=== PATIENT | female | born 1965 | race American Indian/Alaskan Native ===

== ENCOUNTER 2018-12-26 00:13 | Inpatient (IN) | payer MEDICAID ==
[2018-12-26 00:52] LABS: Basophils % (Auto) 0.7 % (0.0-1.8); Hematocrit 32.5 % (30.3-42.9); Hemoglobin 10.3 gm/dl (10.1-14.3); Lymphocytes # (Auto) 1.9 K/mm3 (1.2-5.4); Lymphocytes % (Auto) 37.3 % (13.4-35.0); Mean Corpuscular HGB Conc 32 % (30-34); Mean Corpuscular Volume 79 fl (79-97); Monocytes # (Auto) 0.2 K/mm3 (0.0-0.8); Monocytes % (Auto) 4.9 % (0.0-7.3); Platelet Count 233 K/mm3 (140-440); Red Blood Count 4.11 M/mm3 (3.65-5.03)
--- NOTE | 2018-12-26 01:04 | XRay Report ---
PROCEDURE: XR CHEST 1V AP TECHNIQUE: Chest radiograph single view. HISTORY: sob COMPARISONS: None . FINDINGS: Heart: Heart is enlarged. Mediastinum/Vessels: Normal. Lungs/Pleural space: There is suboptimal inspiration. There is bilateral perihilar pulmonary edema. There are no effusions or pneumothoraces.. Bony thorax: No acute osseous abnormality. Life support devices: None. IMPRESSION: Heart is enlarged. There is suboptimal inspiration. There is bilateral perihilar pulmonary edema. There are no effusions or pneumothoraces... This document is electronically signed by Delvis Guan MD., December 26 2018 01:02:19 AM ET
[2018-12-26] MEDS ORDERED: LASIX IV ONE (01:07)
[2018-12-26 01:13] LABS: INR 1.05 (0.87-1.13)
[2018-12-26 01:36] LABS: Red Cell Distribution Width 22.6 % (13.2-15.2)
[2018-12-26 01:37] LABS: BUN/Creatinine Ratio 14; Blood Urea Nitrogen 18 mg/dL (7-17); Calcium 8.7 mg/dL (8.4-10.2); Hemolysis Index 2
--- NOTE | 2018-12-26 01:50 | Emergency Department Report ---
ED Shortness of Breath HPI - General Chief Complaint: Dyspnea/Respdistress Stated Complaint: BOO Time Seen by Provider: 12/26/18 00:20 Source: patient, family, EMS Mode of arrival: Stretcher Limitations: Physical Limitation - History of Present Illness Initial Comments: 53-year-old female with history of COPD and CHF presents to ED in acute respiratory distress. EMS was called by patient, when they arrived patient was on her BiPAP but tachypneic. Patient was given aspirin, sublingual nitroglycerin 2, Solu-Medrol. Patient was placed on CPAP and given albuterol nebs. The patient did not tolerate CPAP well due to her claustrophobia, so patient arrives to ED with the mask in front of her face. MD Complaint: shortness of breath -: During the night Severity: severe Consistency: constant Improves With: nothing Worsens With: nothing Known History Of: COPD, congestive heart failure Associated Symptoms: cough Treatments Prior to Arrival: NIPPV - Related Data Home Medications Medication Instructions Recorded Confirmed Last Taken Allopurinol [Zyloprim] 300 mg PO QDAY 12/26/18 12/26/18 12/25/18 Amlodipine Besylate [Norvasc] 5 mg PO DAILY 12/26/18 12/26/18 12/25/18 Carvedilol [Coreg] 25 mg PO BID 12/26/18 12/26/18 12/25/18 Furosemide [Lasix TAB] 40 mg PO BID 12/26/18 12/26/18 12/25/18 Glimepiride [Amaryl] 4 mg PO QAM 12/26/18 12/26/18 12/25/18 Indomethacin [Indocin] 25 mg PO BID 12/26/18 12/26/18 12/25/18 Losartan Potassium 100 mg PO DAILY 12/26/18 12/26/18 12/25/18 Metformin HCl [Glucophage ER] 750 mg PO QDAY 12/26/18 12/26/18 12/25/18 Potassium Chloride [Klor-Con 8] 10 meq PO QDAY 12/26/18 12/26/18 12/25/18 Ranitidine HCl [Zantac] 150 mg PO BID 12/26/18 12/26/18 12/25/18 Venlafaxine HCl [Venlafaxine HCl 75 mg PO DAILY 0612/26/18 12/25/18 ER] hydrALAZINE [Apresoline] 50 mg PO Q8HR 12/26/18 12/26/18 12/25/18 Allergies Allergy/AdvReac Type Severity Reaction Status Date / Time lisinopril Allergy Angioedema Verified 12/26/18 00:21 ED Review of Systems ROS: Stated complaint: BOO Other details as noted in HPI Comment: All other systems reviewed and negative Constitutional: denies: chills, fever Respiratory: cough, shortness of breath Cardiovascular: denies: chest pain Musculoskeletal: other (reports BLE edema) ED Past Medical Hx - Past Medical History Previous Medical History?: Yes Hx Hypertension: Yes Hx Congestive Heart Failure: Yes Hx Diabetes: Yes Hx of Cancer: Yes Hx Arthritis: Yes Additional medical history: Gout, - Surgical History Past Surgical History?: Yes Additional Surgical History: port placement - Social History Smoking Status: Never Smoker Substance Use Type: None - Medications Home Medications: Home Medications Medication Instructions Recorded Confirmed Last Taken Type Allopurinol [Zyloprim] 300 mg PO QDAY 12/26/18 12/26/18 12/25/18 History Amlodipine Besylate [Norvasc] 5 mg PO DAILY 12/26/18 12/26/18 12/25/18 History Carvedilol [Coreg] 25 mg PO BID 12/26/18 12/26/18 12/25/18 History Furosemide [Lasix TAB] 40 mg PO BID 12/26/18 12/26/18 12/25/18 History Glimepiride [Amaryl] 4 mg PO QAM 12/26/18 12/26/18 12/25/18 History Indomethacin [Indocin] 25 mg PO BID 12/26/18 12/26/18 12/25/18 History Losartan Potassium 100 mg PO DAILY 12/26/18 12/26/18 12/25/18 History Metformin HCl [Glucophage ER] 750 mg PO QDAY 12/26/18 12/26/18 12/25/18 History Potassium Chloride [Klor-Con 8] 10 meq PO QDAY 12/26/18 12/26/18 12/25/18 History Ranitidine HCl [Zantac] 150 mg PO BID 12/26/18 12/26/18 12/25/18 History Venlafaxine HCl [Venlafaxine HCl 75 mg PO DAILY 12/26/18 12/26/18 12/25/18 History ER] hydrALAZINE [Apresoline] 50 mg PO Q8HR 12/26/18 12/26/18 12/25/18 History ED Physical Exam - General Limitations: Physical Limitation General appearance: alert, in no apparent distress - Head Head exam: Present: atraumatic, normocephalic - Eye Eye exam: Present: normal appearance - ENT ENT exam: Present: mucous membranes moist - Neck Neck exam: Present: normal inspection - Respiratory Respiratory exam: Present: respiratory distress, decreased breath sounds - Cardiovascular Cardiovascular Exam: Present: regular rate, normal rhythm - GI/Abdominal GI/Abdominal exam: Absent: distended - Extremities Exam Extremities exam: Present: other (2+ pitting edema BLE) - Neurological Exam Neurological exam: Present: alert, oriented X3 - Psychiatric Psychiatric exam: Present: normal affect, normal mood - Skin Skin exam: Present: warm, dry, intact, normal color ED Course Vital Signs 12/26/18 12/26/18 12/26/18 00:12 00:16 00:17 Pulse Rate 78 77 78 Respiratory 17 18 17 Rate Blood Pressure 121/76 121/76 O2 Sat by Pulse 96 94 95 Oximetry 12/26/18 12/26/18 12/26/18 00:30 00:35 00:45 Pulse Rate 73 72 71 Respiratory 27 H 22 26 H Rate Blood Pressure 121/76 105/83 122/81 O2 Sat by Pulse 99 100 100 Oximetry 12/26/18 12/26/18 12/26/18 01:00 01:12 01:16 Pulse Rate 72 72 71 Respiratory 24 22 19 Rate Blood Pressure 122/81 105/83 130/82 O2 Sat by Pulse 100 100 98 Oximetry 12/26/18 12/26/18 12/26/18 01:30 01:46 02:00 Pulse Rate 71 71 71 Respiratory 17 20 14 Rate Blood Pressure 139/88 123/68 106/63 O2 Sat by Pulse 98 98 97 Oximetry 12/26/18 12/26/18 12/26/18 02:15 02:30 02:45 Pulse Rate 72 71 78 Respiratory 26 H 27 H 25 H Rate Blood Pressure 133/91 133/91 123/68 O2 Sat by Pulse 97 95 96 Oximetry 12/26/18 12/26/18 12/26/18 03:00 03:15 03:30 Pulse Rate 72 72 72 Respiratory 19 26 H 16 Rate Blood Pressure 124/74 127/84 126/88 O2 Sat by Pulse 96 94 99 Oximetry 12/26/18 12/26/18 03:45 04:00 Pulse Rate 71 72 Respiratory 15 11 L Rate Blood Pressure 122/82 128/90 O2 Sat by Pulse 100 96 Oximetry ED Medical Decision Making - Lab Data Result diagrams: 12/26/18 00:37 12/26/18 00:37 - Radiology Data Radiology results: report reviewed, image reviewed - Medical Decision Making - CHF exacerbation - improved on BiPAP - EKG, trop negative - CXR shows pulm edema - IV lasix given - admitted to hospitalist - Differential Diagnosis CHF, COPD, ACS, pneumonia Critical Care Time: Yes Critical care time in (mins) excluding proc time.: 35 Critical care attestation.: If time is entered above; I have spent that time in minutes in the direct care of this critically ill patient, excluding procedure time. Critical Care Time: 35 min ED Disposition Clinical Impression: Respiratory failure, Acute exacerbation of congestive heart failure Disposition: 09 OP ADMIT IP TO THIS HOSP Is pt being admited?: Yes Condition: Stable Time of Disposition: 02:05
[2018-12-26] MEDS ORDERED: TYLENOL PO PRN (02:09)
[2018-12-26] MEDS ORDERED: ZOFRAN IV PRN (02:09)
[2018-12-26] MEDS ORDERED: SODIUM CHLORIDE FLUSH SYRINGE 10 ML IV PRN (02:09)
[2018-12-26] MEDS ORDERED: PROVENTIL IH PRN (02:09)
[2018-12-26] MEDS ORDERED: D50W (25GM) Syringe IV PRN ×2 (02:09→02:52)
[2018-12-26] MEDS ORDERED: PERCOCET 5/325 PO PRN (02:09)
[2018-12-26] MEDS ORDERED: K-DUR PO ONE (02:43)
--- NOTE | 2018-12-26 03:04 | History and Physical Report ---
<BRAYDEN DARBY - Last Filed: 12/26/18 03:27> History of Present Illness Date of examination: 12/26/18 Date of admission: 12/26/2018 Chief complaint: Difficulty breathing History of present illness: 53-year-old -[place] female with history of DM2, JENNIFER on nocturnal CPAP, hypertension, CHF, COPD, rheumatoid arthritis, gout, throat cancer s/p chemotherapy who presents [facility] ED via EMS with complaints of respiratory distress. States that her symptoms have progressively worsened over the past 2 weeks. She has tried use of inhaler with no relief. Around midnight she started experiencing increased difficulty breathing, unable to ambulate due to severe shortness of breath and decided to call EMS. Upon EMS arrival to the patient's home she was found to be tachycardic on home CPAP. She was given aspirin, sublingual nitroglycerin 2, Solu-Medrol by EMS. Patient is claustrophobic and was unable to tolerate EMS's CPAP mask. Upon arrival to our facility she was transitioned to BiPAP and given IV Lasix 80mg. Pt follows PCP Clarence Whitehead in [place], [place]. Admits cough, yellow sputum production, shortness of breath with exertion, orthopnea, PND, and right lower extremity pitting edema Denies fever, nausea, vomiting, diarrhea, hemoptysis, headache, or visual disturbances Past History Past Medical History: cancer (the cancer), COPD, diabetes, hypertension, other (rheumatoid arthritis, gout) Past Surgical History: Other (port placement) Social history: lives with family, other (former smoker) Family history: no significant family history Medications and Allergies Allergies Allergy/AdvReac Type Severity Reaction Status Date / Time lisinopril Allergy Angioedema Verified 12/26/18 00:21 Home Medications Medication Instructions Recorded Confirmed Last Taken Type Allopurinol [Zyloprim] 300 mg PO QDAY 12/26/18 12/26/18 12/25/18 History Amlodipine Besylate [Norvasc] 5 mg PO DAILY 12/26/18 12/26/18 12/25/18 History Carvedilol [Coreg] 25 mg PO BID 12/26/18 12/26/18 12/25/18 History Furosemide [Lasix TAB] 40 mg PO BID 12/26/18 12/26/18 12/25/18 History Glimepiride [Amaryl] 4 mg PO QAM 12/26/18 12/26/18 12/25/18 History Indomethacin [Indocin] 25 mg PO BID 12/26/18 12/26/18 12/25/18 History Losartan Potassium 100 mg PO DAILY 12/26/18 12/26/18 12/25/18 History Metformin HCl [Glucophage ER] 750 mg PO QDAY 12/26/18 12/26/18 12/25/18 History Potassium Chloride [Klor-Con 8] 10 meq PO QDAY 12/26/18 12/26/18 12/25/18 History Ranitidine HCl [Zantac] 150 mg PO BID 12/26/18 12/26/18 12/25/18 History Venlafaxine HCl [Venlafaxine HCl 75 mg PO DAILY 12/26/18 12/26/18 12/25/18 History ER] hydrALAZINE [Apresoline] 50 mg PO Q8HR 12/26/18 12/26/18 12/25/18 History Active Meds: Active Medications Acetaminophen (Tylenol) 650 mg PO Q4H PRN PRN Reason: Pain MILD(1-3)/Fever >100.5/ROSSI Albuterol (Proventil) 2.5 mg IH Q3HRT PRN PRN Reason: Shortness Of Breath Albuterol/Ipratropium (Duoneb *Not For Prn Use*) 1 ampul IH Q6HRT [facility] Allopurinol (Zyloprim) 300 mg PO QDAY [facility] Amlodipine Besylate (Norvasc) 5 mg PO DAILY [facility] Budesonide (Pulmicort) 0.5 mg IH Q12HRT [facility] Bumetanide (Bumex) 1 mg IV BID@0600,1800 [facility] Carvedilol (Coreg) 25 mg PO BID [facility] Dextrose (D50w (25gm) Syringe) 50 ml IV PRN PRN PRN Reason: Hypoglycemia Dextrose (D50w (25gm) Syringe) 50 ml IV PRN PRN PRN Reason: Hypoglycemia Docusate Sodium (Colace) 100 mg PO BID [facility] Guaifenesin (Mucinex Er) 600 mg PO BID [facility] Heparin Sodium (Porcine) (Heparin) 5,000 unit SUB-Q Q12HR [facility] Hydralazine HCl (Apresoline) 50 mg PO Q8HR [facility] Levofloxacin/Dextrose (Levaquin 500mg/100ml) 500 mg in 100 mls @ 100 mls/hr IV Q24HR [facility]; Protocol Stop: 12/30/18 10:59 Indomethacin (Indocin) 25 mg PO BID [facility] Insulin Glargine (Lantus) 10 units SUB-Q QHS [facility] Insulin Human Lispro (Humalog) 0 unit SUB-Q ACHS [facility]; Protocol Insulin Human Regular (Humulin R) 0 units SUB-Q AC [facility]; Protocol Losartan Potassium (Cozaar) 100 mg PO QDAY [facility] Methylprednisolone Sodium Succinate (Solu-Medrol) 60 mg IV Q8HR [facility] Ondansetron HCl (Zofran) 4 mg IV Q8H PRN PRN Reason: Nausea And Vomiting Oxycodone/Acetaminophen (Percocet 5/325) 1 tab PO Q6H PRN PRN Reason: Pain, Moderate (4-6) Potassium Chloride (K-Dur) 40 meq PO ONCE ONE Stop: 12/26/18 02:44 Potassium Chloride (K-Dur) 10 meq PO QDAY [facility] Sodium Chloride (Sodium Chloride Flush Syringe 10 Ml) 10 ml IV BID [facility] Sodium Chloride (Sodium Chloride Flush Syringe 10 Ml) 10 ml IV PRN PRN PRN Reason: LINE FLUSH Review of Systems All systems: negative (reviewed and no additional remarkable complaints except as noted below) Cardiovascular: orthopnea, dyspnea on exertion, paroxysmal nocturnal dyspnea, high blood pressure Respiratory: cough, cough with sputum (dark yellow), dyspnea on exertion, sleep apnea (on CPAP at home) Exam - Physical Exam Narrative exam: Physical exam General appearance: Present: Mild distress, obese middle-aged -[place] female, alert and oriented 3 - EENT Eyes: Present: PERRL, EOM intact ENT: hearing intact, normal dentition - Neck Neck: Present: supple, normal ROM - Respiratory Respiratory effort: labored Respiratory: Diminished throughout with poor air movement - Cardiovascular Heart rate: 71 (bpm) Rhythm: Sinus rhythm Heart Sounds: Present: S1 & S2. Absent: rub, click - Extremities Extremities: no ischemia, pulses intact, abnormal (right lower extremity pitting edema) - Peripheral Assessment Peripheral Pulses: within normal limits - Abdominal General gastrointestinal: Obese, soft, non-tender, normal bowel sounds - Integumentary Integumentary: Present: warm, dry - Musculoskeletal Musculoskeletal: Able to move all extremities, generalized weakness -Neurological Neurological: CNII-XII intact - Psychiatric Psychiatric: cooperative - Constitutional Vitals: Temp Pulse Resp BP Pulse Ox 78 25 H 123/68 96 12/26/18 02:45 12/26/18 02:45 12/26/18 02:45 12/26/18 02:45 Results - Labs CBC & Chem 7: 12/26/18 00:37 12/26/18 00:37 Labs: Laboratory Last Values WBC 5.1 K/mm3 (4.5-11.0) 12/26/18 00:37 RBC 4.11 M/mm3 (3.65-5.03) 12/26/18 00:37 Hgb 10.3 gm/dl (10.1-14.3) 12/26/18 00:37 Hct 32.5 % (30.3-42.9) 12/26/18 00:37 MCV 79 fl (79-97) 12/26/18 00:37 MCH 25 pg (28-32) L 12/26/18 00:37 MCHC 32 % (30-34) 12/26/18 00:37 RDW 22.6 % (13.2-15.2) H 12/26/18 00:37 Plt Count 233 K/mm3 (140-440) 12/26/18 00:37 Lymph % (Auto) 37.3 % (13.4-35.0) H 12/26/18 00:37 [place] % (Auto) 4.9 % (0.0-7.3) 12/26/18 00:37 Eos % (Auto) 1.0 % (0.0-4.3) 12/26/18 00:37 Baso % (Auto) 0.7 % (0.0-1.8) 12/26/18 00:37 Lymph # 1.9 K/mm3 (1.2-5.4) 12/26/18 00:37 [place] # 0.2 K/mm3 (0.0-0.8) 12/26/18 00:37 Eos # 0.0 K/mm3 (0.0-0.4) 12/26/18 00:37 Baso # 0.0 K/mm3 (0.0-0.1) 12/26/18 00:37 Seg Neutrophils % 56.1 % (40.0-70.0) 12/26/18 00:37 Seg Neutrophils # 2.8 K/mm3 (1.8-7.7) 12/26/18 00:37 PT 14.4 Sec. (12.2-14.9) 12/26/18 00:37 INR 1.05 (0.87-1.13) 12/26/18 00:37 APTT 30.0 Sec. (24.2-36.6) 12/26/18 00:37 POC ABG pH 7.387 (7.35-7.45) 12/26/18 01:08 POC ABG pCO2 46.9 (35-45) H 12/26/18 01:08 POC ABG pO2 225 (80-105) H 12/26/18 01:08 POC ABG HCO3 28.2 (22-26 mml/L) 12/26/18 01:08 POC ABG Total CO2 30 (23-27mmol/L) 12/26/18 01:08 POC ABG O2 Sat 100 12/26/18 01:08 POC ABG Base Excess 3 ((-2) - (+3)mmol/L) 12/26/18 01:08 50 % 12/26/18 01:08 Sodium 141 mmol/L (137-145) 12/26/18 00:37 Potassium 3.3 mmol/L (3.6-5.0) L 12/26/18 00:37 Chloride 101.2 mmol/L (98-107) 12/26/18 00:37 Carbon Dioxide 27 mmol/L (22-30) 12/26/18 00:37 16 mmol/L 12/26/18 00:37 BUN 18 mg/dL (7-17) H 12/26/18 00:37 1.3 mg/dL (0.7-1.2) H 12/26/18 00:37 Estimated GFR 52 ml/min 12/26/18 00:37 14 % 12/26/18 00:37 Glucose 251 mg/dL (65-100) H 12/26/18 00:37 Calcium 8.7 mg/dL (8.4-10.2) 12/26/18 00:37 < 0.010 ng/mL (0.00-0.029) 12/26/18 00:37 NT-Pro-B Natriuret Pep 1504 pg/mL (0-900) H 12/26/18 00:37 - Imaging and Cardiology EKG: image reviewed (sinus rhythm 71 bpm) Chest x-ray: report reviewed (Heart is enlarged. There is suboptimal inspiration. There is bilateral perihilar pulmonary edema. There are no effusions or pneumothoraces.), image reviewed Assessment and Plan Assessment and plan: 53-year-old -[place] female with history of DM 2, JENNIFER on nocturnal CPAP, hypertension, CHF, COPD, rheumatoid arthritis, gout, throat cancer s/p chemotherapy who presents [facility] ED via EMS with complaints of respiratory distress. On examination patient is seen on BiPAP and complaints of dyspnea with activity. Initial ABG 7.38/46/225/28 done on BiPAP. BNP elevated at 1504. Elevation and BUN/creatinine 18/1.3; unsure of patient's baseline. CXR showed cardiomegaly and bilateral pulmonary edema. Will admit to medical floor for further evaluation and treatment. Acute respiratory failure Acute exacerbation COPD COPD Acute exacerbation of CHF CHF Volume overload Pulmonary edema DM 2 Hypokalemia HERNÁN?? vs CKD??- baseline unknown Hypertension Rheumatoid arthritis JENNFIER-nocturnal CPAP use Gout History of Throat cancer status post chemotherapy Plan: Continue supportive care Continuous telemetry monitoring Monitor I&O Monitor renal function Nephrology consulted Start Bumex 1 mg twice a day Monitor electrolytes; replete as needed Potassium 3.3 on arrival, repleted by mouth potassium 40 mEq x1; daily by mouth potassium 10 mEq Monitor BP ASA 81mg Resume Norvasc 5 mg daily, Coreg 25 mg twice a day, losartan 100 mg daily, hydralazine 50 mg every 8 hours POC BG monitoring HgbA1c pending Hold metformin d/t elevation in BUN/creatinine and reduction in GFR Scheduled coverage and sliding scale coverage Monitor oxygen saturation Scheduled DuoNeb nebs and Pulmicort, when necessary albuterol Solu-Medrol 60 mg every 8 hours Mucinex Levaquin 500 mg every 24 hours 5 doses Continue supplemental oxygen and wean as tolerated Continue nocturnal BiPAP use DVT PPX on heparin Advance Directives: No VTE prophylaxis?: Chemical Plan of care discussed with patient/family: Yes <JONNY MOLINA - Last Filed: 12/26/18 06:02> History of Present Illness Date of admission: 12/26/18 03:34 Medications and Allergies Active Meds: Active Medications Acetaminophen (Tylenol) 650 mg PO Q4H PRN PRN Reason: Pain MILD(1-3)/Fever >100.5/ROSSI Albuterol (Proventil) 2.5 mg IH Q3HRT PRN PRN Reason: Shortness Of Breath Albuterol/Ipratropium (Duoneb *Not For Prn Use*) 1 ampul IH Q6HRT [facility] Allopurinol (Zyloprim) 300 mg PO QDAY [facility] Amlodipine Besylate (Norvasc) 5 mg PO DAILY [facility] Aspirin (Baby Aspirin) 81 mg PO QDAY [facility] Budesonide (Pulmicort) 0.5 mg IH Q12HRT [facility] Bumetanide (Bumex) 1 mg IV BID@0600,1800 [facility] Carvedilol (Coreg) 25 mg PO BID [facility] Dextrose (D50w (25gm) Syringe) 50 ml IV PRN PRN PRN Reason: Hypoglycemia Docusate Sodium (Colace) 100 mg PO BID [facility] Guaifenesin (Mucinex Er) 600 mg PO BID [facility] Heparin Sodium (Porcine) (Heparin) 5,000 unit SUB-Q Q12HR [facility] Hydralazine HCl (Apresoline) 50 mg PO Q8HR [facility] Levofloxacin/Dextrose (Levaquin 500mg/100ml) 500 mg in 100 mls @ 100 mls/hr IV Q24HR [facility]; Protocol Stop: 12/30/18 10:59 Indomethacin (Indocin) 25 mg PO BID [facility] Insulin Glargine (Lantus) 10 units SUB-Q QHS [facility] Insulin Human Lispro (Humalog) 0 unit SUB-Q ACHS [facility]; Protocol Losartan Potassium (Cozaar) 100 mg PO QDAY [facility] Methylprednisolone Sodium Succinate (Solu-Medrol) 60 mg IV Q8HR [facility] Nitroglycerin (Nitrostat) 0.4 mg SL .Q5MIN PRN PRN Reason: Chest Pain Ondansetron HCl (Zofran) 4 mg IV Q8H PRN PRN Reason: Nausea And Vomiting Oxycodone/Acetaminophen (Percocet 5/325) 1 tab PO Q6H PRN PRN Reason: Pain, Moderate (4-6) Potassium Chloride (K-Dur) 10 meq PO QDAY [facility] Sodium Chloride (Sodium Chloride Flush Syringe 10 Ml) 10 ml IV BID [facility] Sodium Chloride (Sodium Chloride Flush Syringe 10 Ml) 10 ml IV PRN PRN PRN Reason: LINE FLUSH Exam - Constitutional Vitals: Temp Pulse Resp BP Pulse Ox 72 18 128/90 96 12/26/18 04:35 12/26/18 04:35 12/26/18 04:00 12/26/18 04:35 Results - Labs CBC & Chem 7: 12/26/18 00:37 12/26/18 00:37 Labs: Laboratory Last Values WBC 5.1 K/mm3 (4.5-11.0) 12/26/18 00:37 RBC 4.11 M/mm3 (3.65-5.03) 12/26/18 00:37 Hgb 10.3 gm/dl (10.1-14.3) 12/26/18 00:37 Hct 32.5 % (30.3-42.9) 12/26/18 00:37 MCV 79 fl (79-97) 12/26/18 00:37 MCH 25 pg (28-32) L 12/26/18 00:37 MCHC 32 % (30-34) 12/26/18 00:37 RDW 22.6 % (13.2-15.2) H 12/26/18 00:37 Plt Count 233 K/mm3 (140-440) 12/26/18 00:37 Lymph % (Auto) 37.3 % (13.4-35.0) H 12/26/18 00:37 [place] % (Auto) 4.9 % (0.0-7.3) 12/26/18 00:37 Eos % (Auto) 1.0 % (0.0-4.3) 12/26/18 00:37 Baso % (Auto) 0.7 % (0.0-1.8) 12/26/18 00:37 Lymph # 1.9 K/mm3 (1.2-5.4) 12/26/18 00:37 [place] # 0.2 K/mm3 (0.0-0.8) 12/26/18 00:37 Eos # 0.0 K/mm3 (0.0-0.4) 12/26/18 00:37 Baso # 0.0 K/mm3 (0.0-0.1) 12/26/18 00:37 Seg Neutrophils % 56.1 % (40.0-70.0) 12/26/18 00:37 Seg Neutrophils # 2.8 K/mm3 (1.8-7.7) 12/26/18 00:37 PT 14.4 Sec. (12.2-14.9) 12/26/18 00:37 INR 1.05 (0.87-1.13) 12/26/18 00:37 APTT 30.0 Sec. (24.2-36.6) 12/26/18 00:37 POC ABG pH 7.387 (7.35-7.45) 12/26/18 01:08 POC ABG pCO2 46.9 (35-45) H 12/26/18 01:08 POC ABG pO2 225 (80-105) H 12/26/18 01:08 POC ABG HCO3 28.2 (22-26 mml/L) 12/26/18 01:08 POC ABG Total CO2 30 (23-27mmol/L) 12/26/18 01:08 POC ABG O2 Sat 100 12/26/18 01:08 POC ABG Base Excess 3 ((-2) - (+3)mmol/L) 12/26/18 01:08 50 % 12/26/18 01:08 Sodium 141 mmol/L (137-145) 12/26/18 00:37 Potassium 3.3 mmol/L (3.6-5.0) L 12/26/18 00:37 Chloride 101.2 mmol/L (98-107) 12/26/18 00:37 Carbon Dioxide 27 mmol/L (22-30) 12/26/18 00:37 16 mmol/L 12/26/18 00:37 BUN 18 mg/dL (7-17) H 12/26/18 00:37 1.3 mg/dL (0.7-1.2) H 12/26/18 00:37 Estimated GFR 52 ml/min 12/26/18 00:37 14 % 12/26/18 00:37 Glucose 251 mg/dL (65-100) H 12/26/18 00:37 7.7 % (4-6) H 12/26/18 02:39 Calcium 8.7 mg/dL (8.4-10.2) 12/26/18 00:37 < 0.010 ng/mL (0.00-0.029) 12/26/18 00:37 NT-Pro-B Natriuret Pep 1504 pg/mL (0-900) H 12/26/18 00:37 Assessment and Plan Assessment and plan: I saw and evaluated the patient. I agree with the findings and the plan of care as documented in the Nurse Practitioner's~note, with the following corrections and additions.
[2018-12-26] MEDS ORDERED: NITROSTAT SL PRN (03:15)
[2018-12-26] MEDS: BUMEX IV SCH ×2 (06:09→17:26)
[2018-12-26] MEDS: SOLU-Medrol IV SCH ×3 (06:09→22:15)
[2018-12-26] MEDS: APRESOLINE PO SCH ×3 (06:09→22:15)
[2018-12-26] MEDS ORDERED: HumaLOG SUB-Q SCH (07:30)
[2018-12-26] MEDS ORDERED: HumuLIN R SUB-Q SCH ×2 (07:30)
[2018-12-26] MEDS: DUONEB *Not for PRN Use IH SCH ×3 (08:38→20:14)
[2018-12-26] MEDS: PULMICORT IH SCH ×2 (08:38→20:14)
[2018-12-26] MEDS: NORVASC PO SCH ×2 (08:53→18:12)
[2018-12-26] MEDS: INDOCIN PO SCH ×3 (08:53→22:05)
[2018-12-26] MEDS: LEVAQUIN 500MG/100ML 500 MG/100 ML BAG IV SCH ×2 (08:53→18:10)
[2018-12-26] MEDS: K-DUR PO SCH ×2 (08:53→18:11)
[2018-12-26] MEDS: COZAAR PO SCH ×2 (08:54→18:11)
[2018-12-26] MEDS: ZYLOPRIM PO SCH ×2 (08:54→18:12)
[2018-12-26] MEDS: BABY ASPIRIN PO SCH ×2 (08:54→18:10)
[2018-12-26] MEDS: COLACE PO SCH ×2 (08:54→18:11)
[2018-12-26] MEDS: COREG PO SCH ×3 (08:54→22:15)
[2018-12-26] MEDS: HEPARIN SUB-Q SCH ×3 (08:54→22:15)
[2018-12-26] MEDS: MUCINEX ER PO SCH ×3 (08:55→22:15)
[2018-12-26] MEDS: HumaLOG SUB-Q SCH ×4 (08:57→22:15)
--- NOTE | 2018-12-26 09:16 | Consultation ---
History of Present Illness - History of Present Illness Thank you for the consultation ! Patient was evaluated today My assessment and plan are as follows Renal failure in a patient who is 53-year-old and has multiple risk factor for underlying chronic kidney disease including diet, lifestyle, hypertension, NSAID medication use, gout hyperuricemia, and morbid obesity She has been admitted here with shortness of breath with underlying history of congestive heart failure as well as COPD she also does appear to have fluid overload for which she has been initiated on diuretic therapy and is clinically feeling better Degree and severity of renal dysfunction was discussed with patient she is at risk for progression over time and must follow-up with nephrology in the outpatient setting Diet and lifestyle changes also discussed with patient to make necessary changes and follow-up proper renal cardiac and diabetic diet she may benefit from renal dietitian evaluation at some point Hypokalemia patient has been on diuretic therapy, she may benefit from addition of spironolactone in addition to lowering the dose of losartan upon discharge She will need to make a follow-up appointment office upon discharge Had a detailed discussion with patient about the plan of care from renal standpoint. All questions were answered labs and pertinent imaging findings were explained to the patient and simple Vincent[place]. Prognosis: Guarded We'll continue to follow and make recommendation from renal standpoint Thank you for the consultation. History of presenting illness; Patient is a 53-year-old the female who has been admitted here with worsening shortness of breath she was brought in by EMS service due to worsening of dyspnea and was on BiPAP and was also noted to be tachypneic upon arrival. According to the patient her breathing has been getting worse for nearly 2 weeks, she will also noted to be tachycardic upon admission, dietary compliance has been very poor patient does have chronic swelling of both lower extremity She was taking indomethacin as well as losartan prior to arrival in addition to several other medication including Lasix this was reviewed she also does suffer from gout and hyperuricemia, rheumatoid arthritis Patient's creatinine upon arrival was 1.3 with a BUN of 18 potassium was 3.3 she has been admitted here with congestive heart failure exacerbation chest x-ray showed evidence of pulmonary edema she is feeling much better with initiation of diuretic therapy Patient doesn't multiple risk factors for underlying chronic kidney disease Past medical history significant for Throat cancer status post chemotherapy Rheumatoid arthritis Obstructive sleep apnea COPD Gout hyperuricemia Hypertension congestive heart failure Hypokalemia Chronic depression Diabetes NSAID use Chronic edema both lower extremity Current allergies ALEXUS inhibitor Home medication present medication: Reviewed Social history: Reviewed Family history: Reviewed Physical examination Vitals: Reviewed from this admission Gen.: No acute distress HEENT: Normocephalic/atraumatic skull oral mucosa moist minimal pallor no icterus or uremic order Neck: Supple without any thyromegaly nodular mass or JVD Chest: Bilateral prolonged expiratory phases with basilar crackles Heart: Regular rate and rhythm S1 and S2 heard no S3-S4 no pericardial rub Abdomen: Soft nontender no guarding rigidity rebound organomegaly no suprapubic masses, no CVA tenderness no renal bruit Back: No CVA tenderness Derm: No petechial rashes dry skin Extremity: Pulses palpable no peripheral cyanosis, 1+ edema dry skin. Chronic changes of stasis in both lower extremity Neurological: Alert awake follows commands Psychiatric: No agitation and aggression Labs and x-rays: Were reviewed from this admission Past History Past Medical History: cancer (the cancer), COPD, diabetes, hypertension, other (rheumatoid arthritis, gout) Past Surgical History: Other (port placement) Social history: lives with family, other (former smoker) Family history: no significant family history Medications and Allergies Allergies Allergy/AdvReac Type Severity Reaction Status Date / Time lisinopril Allergy Angioedema Verified 12/26/18 00:21 Home Medications Medication Instructions Recorded Confirmed Last Taken Type Allopurinol [Zyloprim] 300 mg PO QDAY 12/26/18 12/26/18 12/25/18 History Amlodipine Besylate [Norvasc] 5 mg PO DAILY 12/26/18 12/26/18 12/25/18 History Carvedilol [Coreg] 25 mg PO BID 12/26/18 12/26/18 12/25/18 History Furosemide [Lasix TAB] 40 mg PO BID 12/26/18 12/26/18 12/25/18 History Glimepiride [Amaryl] 4 mg PO QAM 12/26/18 12/26/18 12/25/18 History Indomethacin [Indocin] 25 mg PO BID 12/26/18 12/26/18 12/25/18 History Losartan Potassium 100 mg PO DAILY 12/26/18 12/26/18 12/25/18 History Metformin HCl [Glucophage ER] 750 mg PO QDAY 12/26/18 12/26/18 12/25/18 History Potassium Chloride [Klor-Con 8] 10 meq PO QDAY 12/26/18 12/26/18 12/25/18 History Ranitidine HCl [Zantac] 150 mg PO BID 12/26/18 12/26/18 12/25/18 History Venlafaxine HCl [Venlafaxine HCl 75 mg PO DAILY 12/26/18 12/26/18 12/25/18 History ER] hydrALAZINE [Apresoline] 50 mg PO Q8HR 12/26/18 12/26/18 12/25/18 History Active Meds: Active Medications Acetaminophen (Tylenol) 650 mg PO Q4H PRN PRN Reason: Pain MILD(1-3)/Fever >100.5/ROSSI Albuterol (Proventil) 2.5 mg IH Q3HRT PRN PRN Reason: Shortness Of Breath Albuterol/Ipratropium (Duoneb *Not For Prn Use*) 1 ampul IH Q6HRT [facility] Last Admin: 12/26/18 08:38 Dose: 1 ampul Documented by: Allopurinol (Zyloprim) 300 mg PO QDAY [facility] Last Admin: 12/26/18 08:54 Dose: 300 mg Documented by: Amlodipine Besylate (Norvasc) 5 mg PO DAILY [facility] Last Admin: 12/26/18 08:53 Dose: 5 mg Documented by: Aspirin (Baby Aspirin) 81 mg PO QDAY [facility] Last Admin: 12/26/18 08:54 Dose: 81 mg Documented by: Budesonide (Pulmicort) 0.5 mg IH Q12HRT [facility] Last Admin: 12/26/18 08:38 Dose: 0.5 mg Documented by: Bumetanide (Bumex) 1 mg IV BID@0600,1800 [facility] Last Admin: 12/26/18 06:09 Dose: 1 mg Documented by: Carvedilol (Coreg) 25 mg PO BID [facility] Last Admin: 12/26/18 08:54 Dose: 25 mg Documented by: Dextrose (D50w (25gm) Syringe) 50 ml IV PRN PRN PRN Reason: Hypoglycemia Docusate Sodium (Colace) 100 mg PO BID [facility] Last Admin: 12/26/18 08:54 Dose: 100 mg Documented by: Guaifenesin (Mucinex Er) 600 mg PO BID [facility] Last Admin: 12/26/18 08:55 Dose: 600 mg Documented by: Heparin Sodium (Porcine) (Heparin) 5,000 unit SUB-Q Q12HR [facility] Last Admin: 12/26/18 08:54 Dose: 5,000 unit Documented by: Hydralazine HCl (Apresoline) 50 mg PO Q8HR [facility] Last Admin: 12/26/18 06:09 Dose: 50 mg Documented by: Levofloxacin/Dextrose (Levaquin 500mg/100ml) 500 mg in 100 mls @ 100 mls/hr IV Q24HR [facility]; Protocol Stop: 12/30/18 10:59 Last Admin: 12/26/18 08:53 Dose: 100 mls/hr Documented by: Indomethacin (Indocin) 25 mg PO BID [facility] Last Admin: 12/26/18 08:53 Dose: 25 mg Documented by: Insulin Glargine (Lantus) 10 units SUB-Q QHS [facility] Insulin Human Lispro (Humalog) 0 unit SUB-Q ACHS [facility]; Protocol Last Admin: 12/26/18 08:57 Dose: 6 unit Documented by: Losartan Potassium (Cozaar) 100 mg PO QDAY [facility] Last Admin: 12/26/18 08:54 Dose: 100 mg Documented by: Methylprednisolone Sodium Succinate (Solu-Medrol) 60 mg IV Q8HR [facility] Last Admin: 12/26/18 06:09 Dose: 60 mg Documented by: Nitroglycerin (Nitrostat) 0.4 mg SL .Q5MIN PRN PRN Reason: Chest Pain Ondansetron HCl (Zofran) 4 mg IV Q8H PRN PRN Reason: Nausea And Vomiting Oxycodone/Acetaminophen (Percocet 5/325) 1 tab PO Q6H PRN PRN Reason: Pain, Moderate (4-6) Potassium Chloride (K-Dur) 10 meq PO QDAY [facility] Last Admin: 12/26/18 08:53 Dose: 10 meq Documented by: Sodium Chloride (Sodium Chloride Flush Syringe 10 Ml) 10 ml IV BID [facility] Sodium Chloride (Sodium Chloride Flush Syringe 10 Ml) 10 ml IV PRN PRN PRN Reason: LINE FLUSH Exam - Vital Signs Vital signs: Vital Signs Pulse Resp Pulse Ox 78 17 96 12/26/18 00:12 12/26/18 00:12 12/26/18 00:12 Results - Lab Results 12/26/18 00:37 12/26/18 00:37 Most recent lab results Calcium 8.7 mg/dL (8.4-10.2) 12/26/18 00:37
[2018-12-26 10:29] LABS: Calcium 8.4 mg/dL (8.4-10.2)
[2018-12-26] MEDS ORDERED: LANTUS SUB-Q SCH (22:00)
[2018-12-26] MEDS: SODIUM CHLORIDE FLUSH SYRINGE 10 ML IV SCH (22:15)
--- NOTE | 2018-12-26 23:28 | Event Note ---
Date: 12/26/18 Patient seen and examined, continue current management as outlined.
[2018-12-27] MEDS: DUONEB *Not for PRN Use IH SCH ×4 (01:45→19:47)
[2018-12-27] MEDS: COLACE PO SCH ×3 (03:52→22:05)
[2018-12-27] MEDS: APRESOLINE PO SCH ×3 (05:41→22:03)
[2018-12-27] MEDS: SOLU-Medrol IV SCH ×3 (05:41→22:16)
[2018-12-27] MEDS: BUMEX IV SCH ×2 (05:42→18:12)
[2018-12-27 07:28] LABS: Basophils % (Auto) 0.1 % (0.0-1.8); Hematocrit 33.7 % (30.3-42.9); Hemoglobin 10.7 gm/dl (10.1-14.3); Lymphocytes # (Auto) 1.1 K/mm3 (1.2-5.4); Mean Corpuscular HGB Conc 32 % (30-34); Mean Corpuscular Volume 78 fl (79-97); Monocytes # (Auto) 0.2 K/mm3 (0.0-0.8); Monocytes % (Auto) 2.4 % (0.0-7.3); Platelet Count 246 K/mm3 (140-440); Red Blood Count 4.32 M/mm3 (3.65-5.03)
[2018-12-27 07:33] LABS: Red Cell Distribution Width 22.9 % (13.2-15.2)
[2018-12-27] MEDS: PULMICORT IH SCH ×2 (07:41→19:47)
[2018-12-27 07:45] LABS: Calcium 8.5 mg/dL (8.4-10.2)
[2018-12-27] MEDS: BABY ASPIRIN PO SCH (09:13)
[2018-12-27] MEDS: MUCINEX ER PO SCH ×2 (09:13→22:03)
[2018-12-27] MEDS: ZYLOPRIM PO SCH (09:13)
[2018-12-27] MEDS: INDOCIN PO SCH ×2 (09:14→22:04)
[2018-12-27] MEDS: K-DUR PO SCH (09:14)
[2018-12-27] MEDS: LEVAQUIN 500MG/100ML 500 MG/100 ML BAG IV SCH (09:14)
[2018-12-27] MEDS: HumaLOG SUB-Q SCH ×4 (09:18→22:07)
[2018-12-27] MEDS: HEPARIN SUB-Q SCH ×2 (09:19→22:06)
[2018-12-27] MEDS: NORVASC PO SCH (09:23)
[2018-12-27] MEDS: COREG PO SCH ×2 (09:24→22:04)
[2018-12-27] MEDS: COZAAR PO SCH (09:24)
[2018-12-27] MEDS ORDERED: HumuLIN R SUB-Q ONE (10:33)
[2018-12-27] MEDS: SODIUM CHLORIDE FLUSH SYRINGE 10 ML IV SCH ×3 (10:47→22:24)
--- NOTE | 2018-12-27 13:07 | Progress Note ---
Subjective Interval history: Patient was seen today for follow-up of multiple renal related issues No complaints of any chest pain pressure or shortness of breath she is breathing comfortably with oxygen cannula Willing to change her diet and lifestyle Interdisciplinary notes that also reviewed Events of 24 hours vitals labs intake output medications were reviewed Past medical history: Reviewed Family history: Reviewed Social history: Reviewed Allergies: Reviewed Physical examination: Vitals: Reviewed HEENT: No pallor or icterus oral mucosa moist Neck: Supple no JVD no thyromegaly Chest: Bilateral clear to auscultation anteriorly Heart: Regular rate and rhythm S1-S2 heard no S3-S4 Abdomen: Soft nontender no voluntary guarding rigidity rebound Extremity: Dry skin less than 1+ peripheral edema Psychiatric: No evidence of agitation and aggression noted Dermatology: No petechial rashes Labs and x-rays: Reviewed from today Assessment and plan renal failure in a patient who has multiple risk factors for underlying chronic kidney disease Discussed at length about the renal care plan Need to modify diet lifestyle lose weight patient seems Upon discharge will need a follow-up appointment in Current creatinine is around 1.4 we'll order for ultrasono Shortness of breath currently appears to be Hypertension goal blood pressure 140 systolic was discussed with patient Home blood pressure monitoring required May benefit from dietary lifestyle changes, will also need nutritional consultation Follow up on the pending studies More than 35 minutes were spent in direct patient care today Fluid restriction 1500 cc per day for now diuresis as tolerated Patient was adequately counseled and educated regarding all the renal related issues Laboratory studies, pertinent for discussed with patient All questions were answered and simple [place] We'll continue to follow and make recommendation for renal standpoint Objective - Vital Signs Vital signs: Vital Signs - 12hr 12/27/18 12/27/18 12/27/18 01:45 01:53 01:54 Temperature Pulse Rate 74 Pulse Rate [ 82 74 Throughout] Respiratory 19 Rate Respiratory 17 19 Rate [ Throughout] Blood Pressure O2 Sat by Pulse 98 Oximetry 12/27/18 12/27/18 12/27/18 05:41 06:07 07:41 Temperature 98.6 F Pulse Rate 82 70 Pulse Rate [ 80 Throughout] Respiratory 20 Rate Respiratory 18 Rate [ Throughout] Blood Pressure 140/90 116/71 O2 Sat by Pulse 96 Oximetry 12/27/18 12/27/18 12/27/18 07:56 09:23 11:25 Temperature 97.4 F L Pulse Rate 78 76 Pulse Rate [ 82 Throughout] Respiratory 24 Rate Respiratory 18 Rate [ Throughout] Blood Pressure 146/93 143/93 O2 Sat by Pulse 94 Oximetry - Lab 12/27/18 06:40 12/27/18 06:40 Most recent lab results Calcium 8.5 mg/dL (8.4-10.2) 12/27/18 06:40 Medications & Allergies - Medications Allergies/Adverse Reactions: Allergies lisinopril Allergy (Verified 12/26/18 00:21) Angioedema Home Medications: Home Medications Medication Instructions Recorded Confirmed Last Taken Type Allopurinol [Zyloprim] 300 mg PO QDAY 12/26/18 12/26/18 12/25/18 History Amlodipine Besylate [Norvasc] 5 mg PO DAILY 12/26/18 12/26/18 12/25/18 History Carvedilol [Coreg] 25 mg PO BID 12/26/18 12/26/18 12/25/18 History Furosemide [Lasix TAB] 40 mg PO BID 12/26/18 12/26/18 12/25/18 History Glimepiride [Amaryl] 4 mg PO QAM 12/26/18 12/26/18 12/25/18 History Indomethacin [Indocin] 25 mg PO BID 12/26/18 12/26/18 12/25/18 History Losartan Potassium 100 mg PO DAILY 12/26/18 12/26/18 12/25/18 History Metformin HCl [Glucophage ER] 750 mg PO QDAY 12/26/18 12/26/18 12/25/18 History Potassium Chloride [Klor-Con 8] 10 meq PO QDAY 12/26/18 12/26/18 12/25/18 History Ranitidine HCl [Zantac] 150 mg PO BID 12/26/18 12/26/18 12/25/18 History Venlafaxine HCl [Venlafaxine HCl 75 mg PO DAILY 12/26/18 12/26/18 12/25/18 History ER] hydrALAZINE [Apresoline] 50 mg PO Q8HR 12/26/18 12/26/18 12/25/18 History Active Medications: Generic Name Dose Route Start Last Admin Trade Name Freq PRN Reason Stop Dose Admin Acetaminophen 650 mg 12/26/18 02:09 Tylenol PO Q4H PRN Pain MILD(1-3)/Fever >100.5/ROSSI Albuterol 2.5 mg 12/26/18 02:09 Proventil IH Q3HRT PRN Shortness Of Breath Albuterol/Ipratropium 1 ampul 12/26/18 08:00 12/27/18 07:41 Duoneb *Not For Prn Use* IH 1 ampul Q6HRT [facility] Administration Allopurinol 300 mg 12/26/18 10:00 12/27/18 09:13 Zyloprim PO 300 mg QDAY [facility] Administration Amlodipine Besylate 5 mg 12/26/18 10:00 12/27/18 09:23 Norvasc PO 5 mg DAILY [facility] Administration Aspirin 81 mg 12/26/18 10:00 12/27/18 09:13 Baby Aspirin PO 81 mg QDAY [facility] Administration Budesonide 0.5 mg 12/26/18 08:00 12/27/18 07:41 Pulmicort IH 0.5 mg Q12HRT [facility] Administration Bumetanide 1 mg 12/26/18 06:00 12/27/18 05:42 Bumex IV 1 mg BID@0600,1800 [facility] Administration Carvedilol 25 mg 12/26/18 10:00 12/27/18 09:24 Coreg PO 25 mg BID [facility] Administration Dextrose 50 ml 12/26/18 02:52 D50w (25gm) Syringe IV PRN PRN Hypoglycemia Docusate Sodium 100 mg 12/26/18 10:00 12/27/18 09:13 Colace PO 100 mg BID [facility] Administration Guaifenesin 600 mg 12/26/18 10:00 12/27/18 09:13 Mucinex Er PO 600 mg BID [facility] Administration Heparin Sodium (Porcine) 5,000 unit 12/26/18 10:00 12/27/18 09:19 Heparin SUB-Q 5,000 unit Q12HR [facility] Administration Hydralazine HCl 50 mg 12/26/18 06:00 12/27/18 13:01 Apresoline PO 50 mg Q8HR [facility] Administration Levofloxacin/Dextrose 500 mg in 100 mls @ 100 mls/hr 12/26/18 10:00 12/27/18 09:14 Levaquin 500mg/100ml IV 12/30/18 10:59 100 mls/hr Q24HR [facility] Administration Protocol Indomethacin 25 mg 12/26/18 10:00 12/27/18 09:14 Indocin PO 25 mg BID [facility] Administration Insulin Human Isoph/Insulin Regular 20 unit 12/27/18 10:32 Humulin 70/30 SUB-Q BIDDIAB [facility] Insulin Human Lispro 0 unit 12/26/18 07:30 12/27/18 12:58 Humalog SUB-Q 10 unit ACHS [facility] Administration Protocol Losartan Potassium 100 mg 12/26/18 10:00 12/27/18 09:24 Cozaar PO 100 mg QDAY [facility] Administration Methylprednisolone Sodium Succinate 40 mg 12/27/18 10:32 12/27/18 13:01 Solu-Medrol IV 40 mg Q8HR [facility] Administration Nitroglycerin 0.4 mg 12/26/18 03:15 Nitrostat SL .Q5MIN PRN Chest Pain Ondansetron HCl 4 mg 12/26/18 02:09 Zofran IV Q8H PRN Nausea And Vomiting Oxycodone/Acetaminophen 1 tab 12/26/18 02:09 Percocet 5/325 PO Q6H PRN Pain, Moderate (4-6) Potassium Chloride 10 meq 12/26/18 10:00 12/27/18 09:14 K-Dur PO 10 meq QDAY [facility] Administration Sodium Chloride 10 ml 12/26/18 10:00 12/27/18 10:47 Sodium Chloride Flush Syringe 10 Ml IV 10 ml BID [facility] Administration Sodium Chloride 10 ml 12/26/18 02:09 Sodium Chloride Flush Syringe 10 Ml IV PRN PRN LINE FLUSH
--- NOTE | 2018-12-27 13:33 | Consultation ---
History of Present Illness Consult date: 12/27/18 Requesting physician: JONNY MOLINA Consult reason: congestive heart failure History of present illness: The pt is a 53-year-old female with a past medical history of HTN, DM, JENNIFER, HF, ? COPD, rheumatoid arthritis, gout, non hodgkin's lymphoma s/p chemotherapy, prior cocaine use (has not used in over 10 years), morbid obesity. She is previously unknown to our practice. She presented [facility] via EMS with complaints of SOB, BOBBY and RLE swelling which have progressively worsened over the past 2 weeks. Pt reports that she has been drinking a lot of water and eating a lot more ice than usual lately. Around midnight she started experiencing increased difficulty breathing, unable to ambulate due to severe shortness of breath and decided to call EMS. Upon EMS arrival to the patient's home she was found to be tachycardic on home CPAP. She was given aspirin, sublingual nitroglycerin 2, Solu-Medrol by EMS. Patient is claustrophobic and was unable to tolerate EMS's CPAP mask. Upon arrival to our facility she was t ransitioned to BiPAP and given IV Lasix 80mg. Pt follows PCP Dr. Whitehead in [place], [place]. Pt denies any chest pain, palpitations, n/v, diaphoresis, dizziness or syncope. She does report a history of "congestive heart failure" which she states was diagnosed by her PCP. 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 CXR shows pulmonary edema and cardiomegaly. Past History Past Medical History: cancer, diabetes, hypertension, other (rheumatoid arthritis, gout) Past Surgical History: Other (port placement) Social history: lives with family, other (prior cocaine use). denies: smoking, alcohol abuse, prescription drug abuse Family history: no significant family history Medications and Allergies Allergies Allergy/AdvReac Type Severity Reaction Status Date / Time lisinopril Allergy Angioedema Verified 12/26/18 00:21 Home Medications Medication Instructions Recorded Confirmed Last Taken Type Allopurinol [Zyloprim] 300 mg PO QDAY 12/26/18 12/26/18 12/25/18 History Amlodipine Besylate [Norvasc] 5 mg PO DAILY 12/26/18 12/26/18 12/25/18 History Carvedilol [Coreg] 25 mg PO BID 12/26/18 12/26/18 12/25/18 History Furosemide [Lasix TAB] 40 mg PO BID 12/26/18 12/26/18 12/25/18 History Glimepiride [Amaryl] 4 mg PO QAM 12/26/18 12/26/18 12/25/18 History Indomethacin [Indocin] 25 mg PO BID 12/26/18 12/26/18 12/25/18 History Losartan Potassium 100 mg PO DAILY 12/26/18 12/26/18 12/25/18 History Metformin HCl [Glucophage ER] 750 mg PO QDAY 12/26/18 12/26/18 12/25/18 History Potassium Chloride [Klor-Con 8] 10 meq PO QDAY 12/26/18 12/26/18 12/25/18 History Ranitidine HCl [Zantac] 150 mg PO BID 12/26/18 12/26/18 12/25/18 History Venlafaxine HCl [Venlafaxine HCl 75 mg PO DAILY 12/26/18 12/26/18 12/25/18 History ER] hydrALAZINE [Apresoline] 50 mg PO Q8HR 12/26/18 12/26/18 12/25/18 History Active Meds: Active Medications Acetaminophen (Tylenol) 650 mg PO Q4H PRN PRN Reason: Pain MILD(1-3)/Fever >100.5/ROSSI Albuterol (Proventil) 2.5 mg IH Q3HRT PRN PRN Reason: Shortness Of Breath Albuterol/Ipratropium (Duoneb *Not For Prn Use*) 1 ampul IH Q6HRT [facility] Last Admin: 12/27/18 07:41 Dose: 1 ampul Documented by: Allopurinol (Zyloprim) 300 mg PO QDAY [facility] Last Admin: 12/27/18 09:13 Dose: 300 mg Documented by: Amlodipine Besylate (Norvasc) 5 mg PO DAILY [facility] Last Admin: 12/27/18 09:23 Dose: 5 mg Documented by: Aspirin (Baby Aspirin) 81 mg PO QDAY [facility] Last Admin: 12/27/18 09:13 Dose: 81 mg Documented by: Budesonide (Pulmicort) 0.5 mg IH Q12HRT [facility] Last Admin: 12/27/18 07:41 Dose: 0.5 mg Documented by: Bumetanide (Bumex) 1 mg IV BID@0600,1800 [facility] Last Admin: 12/27/18 05:42 Dose: 1 mg Documented by: Carvedilol (Coreg) 25 mg PO BID [facility] Last Admin: 12/27/18 09:24 Dose: 25 mg Documented by: Dextrose (D50w (25gm) Syringe) 50 ml IV PRN PRN PRN Reason: Hypoglycemia Docusate Sodium (Colace) 100 mg PO BID [facility] Last Admin: 12/27/18 09:13 Dose: 100 mg Documented by: Guaifenesin (Mucinex Er) 600 mg PO BID [facility] Last Admin: 12/27/18 09:13 Dose: 600 mg Documented by: Heparin Sodium (Porcine) (Heparin) 5,000 unit SUB-Q Q12HR [facility] Last Admin: 12/27/18 09:19 Dose: 5,000 unit Documented by: Hydralazine HCl (Apresoline) 50 mg PO Q8HR [facility] Last Admin: 12/27/18 13:01 Dose: 50 mg Documented by: Levofloxacin/Dextrose (Levaquin 500mg/100ml) 500 mg in 100 mls @ 100 mls/hr IV Q24HR [facility]; Protocol Stop: 12/30/18 10:59 Last Admin: 12/27/18 09:14 Dose: 100 mls/hr Documented by: Indomethacin (Indocin) 25 mg PO BID [facility] Last Admin: 12/27/18 09:14 Dose: 25 mg Documented by: Insulin Human Isoph/Insulin Regular (Humulin 70/30) 20 unit SUB-Q BIDDIAB [facility] Insulin Human Lispro (Humalog) 0 unit SUB-Q ACHS [facility]; Protocol Last Admin: 12/27/18 12:58 Dose: 10 unit Documented by: Losartan Potassium (Cozaar) 100 mg PO QDAY [facility] Last Admin: 12/27/18 09:24 Dose: 100 mg Documented by: Methylprednisolone Sodium Succinate (Solu-Medrol) 40 mg IV Q8HR [facility] Last Admin: 12/27/18 13:01 Dose: 40 mg Documented by: Nitroglycerin (Nitrostat) 0.4 mg SL .Q5MIN PRN PRN Reason: Chest Pain Ondansetron HCl (Zofran) 4 mg IV Q8H PRN PRN Reason: Nausea And Vomiting Oxycodone/Acetaminophen (Percocet 5/325) 1 tab PO Q6H PRN PRN Reason: Pain, Moderate (4-6) Last Admin: 12/27/18 13:02 Dose: 1 tab Documented by: Potassium Chloride (K-Dur) 10 meq PO QDAY [facility] Last Admin: 12/27/18 09:14 Dose: 10 meq Documented by: Sodium Chloride (Sodium Chloride Flush Syringe 10 Ml) 10 ml IV BID [facility] Last Admin: 12/27/18 10:47 Dose: 10 ml Documented by: Sodium Chloride (Sodium Chloride Flush Syringe 10 Ml) 10 ml IV PRN PRN PRN Reason: LINE FLUSH Review of Systems Constitutional: no fever, no chills, no sweats Ears, nose, mouth and throat: no ear pain, no nose pain, no sinus pressure, no sinus pain Cardiovascular: orthopnea, edema, shortness of breath, dyspnea on exertion, leg edema, no chest pain, no palpitations, no rapid/irregular heart beat, no syncope, no lightheadedness Respiratory: shortness of breath, dyspnea on exertion, no cough, no congestion, no wheezing, no pain on inspiration Gastrointestinal: no abdominal pain, no nausea, no vomiting, no diarrhea, no constipation, no change in bowel habits Genitourinary Female: no pelvic pain, no flank pain, no dysuria, no urinary frequency, no urgency Musculoskeletal: no neck stiffness, no neck pain, no shooting arm pain, no arm numbness/tingling, no low back pain, no shooting leg pain Integumentary: no rash, no pruritis, no redness, no sores, no wounds Neurological: no head injury, no paralysis, no weakness, no parathesias, no numbness, no tingling, no seizures, no syncope Psychiatric: no anxiety Endocrine: no cold intolerance, no heat intolerance Hematologic/Lymphatic: no easy bruising, no easy bleeding Allergic/Immunologic: no urticaria, no wheezing Physical Examination Vital Signs Pulse Resp Pulse Ox 78 17 96 12/26/18 00:12 12/26/18 00:12 12/26/18 00:12 General appearance: no acute distress HEENT: Positive: PERRL, Normocephaly, Mucus Membranes Moist Neck: Positive: neck supple, trachea midline Cardiac: Positive: Reg Rate and Rhythm, S1/S2 Lungs: Positive: Decreased Breath Sounds Neuro: Positive: Grossly Intact Abdomen: Negative: Tender Skin: Negative: Rash Musculoskeletal: No Pain Extremities: Present: edema (trace BLE nonpitting) Results 12/27/18 06:40 12/27/18 06:40 CBC 12/27/18 Range/Units 06:40 WBC 8.1 (4.5-11.0) K/mm3 RBC 4.32 (3.65-5.03) M/mm3 Hgb 10.7 (10.1-14.3) gm/dl Hct 33.7 (30.3-42.9) % Plt Count 246 (140-440) K/mm3 Lymph # 1.1 L (1.2-5.4) K/mm3 Rosebud # 0.2 (0.0-0.8) K/mm3 Eos # 0.0 (0.0-0.4) K/mm3 Baso # 0.0 (0.0-0.1) K/mm3 Comprehensive Metabolic Panel 12/27/18 Range/Units 06:40 Sodium 135 L (137-145) mmol/L Potassium 4.1 (3.6-5.0) mmol/L Chloride 95.3 L (98-107) mmol/L Carbon Dioxide 24 (22-30) mmol/L BUN 25 H (7-17) mg/dL Creatinine 1.4 H (0.7-1.2) mg/dL Glucose 327 H (65-100) mg/dL Calcium 8.5 (8.4-10.2) mg/dL - Imaging and Cardiology Echo: pending EKG: report reviewed, image reviewed EKG interpretations - Telemetry EKG Rhythm: Sinus Rhythm - EKG Sinus rhythms and dysrhythmias: sinus rhythm Assessment and Plan Agree with present cardiac management. Monitor renal indices. Await echo. Further recs to follow per hospital course. The patient has been seen in conjunction with Dr. Rendon who agrees with the assessment and plan of care. - Patient Problems (1) Acute heart failure Current Visit: Yes Status: Acute (2) Acute respiratory failure Current Visit: Yes Status: Acute (3) HERNÁN (acute kidney injury) Current Visit: Yes Status: Acute (4) HTN (hypertension) Current Visit: Yes Status: Chronic (5) Diabetes Current Visit: Yes Status: Chronic (6) Sleep apnea Current Visit: Yes Status: Chronic (7) Morbid obesity Current Visit: Yes Status: Chronic (8) Rheumatoid arthritis Current Visit: Yes Status: Chronic (9) History of non-Hodgkin's lymphoma Current Visit: Yes Status: Chronic
--- NOTE | 2018-12-27 15:23 | Progress Note ---
Assessment and Plan Assessment and plan: 53-year-old -Tong[place] female with history of DM 2, JENNIFER on nocturnal CPAP, hypertension, CHF, COPD, rheumatoid arthritis, gout, throat cancer s/p chemotherapy who presents [facility] ED via EMS with complaints of respiratory distress. On examination patient is seen on BiPAP and complaints of dyspnea wit h activity. Initial ABG 7.38/46/225/28 done on BiPAP. BNP elevated at 1504. Elevation and BUN/creatinine 18/1.3; unsure of patient's baseline. CXR showed cardiomegaly and bilateral pulmonary edema. Will admit to medical floor for further evaluation and treatment. * Patient was started on diuretics as well as steroids with some noted improvement today Acute respiratory failure Acute exacerbation COPD Acute exacerbation of CHF presumed Diastolic Pulmonary edema DM 2 with hyperglycemia Hypokalemia HERNÁN?? vs CKD??- baseline unknown Secondary to vasomotor nephropathy Hypertension Rheumatoid arthritis JENNIFER-nocturnal CPAP use Morbid obesity Gout History of Throat cancer status post chemotherapy Plan: Continue supportive care Cardiology consult Weightloss advised Nephrology input noted Change to lasix 40 po BID Monitor BP Taper steroids, adjust insulin for better control POC BG monitoring HgbA1c 7.7 Hold metformin d/t elevation in BUN/creatinine and reduction in GFR Scheduled coverage and sliding scale coverage Monitor oxygen saturation Scheduled DuoNeb nebs and Pulmicort, when necessary albuterol Mucinex Levaquin 500 mg every 24 hours 5 doses Continue supplemental oxygen and wean as tolerated Continue nocturnal BiPAP use DVT PPX on heparin History Interval history: Patient is examined today in no acute distress showing some improvement. sitting up at the bedside Hospitalist Physical - Physical exam Narrative exam: VITAL SIGNS: Reviewed. GENERAL: The patient appeared well nourished and normally developed, Morbidly Obese. Vital signs as documented. HEAD: No signs of head trauma. EYES: Pupils are equal. Extraocular motions intact. EARS: Hearing grossly intact. MOUTH: Oropharynx is normal. NECK: No adenopathy, no JVD. CHEST: Chest Diminished breath sounds bilaterally. No wheezes, rales, or rhonchi. CARDIAC: Regular rate and rhythm. S1 and S2, without murmurs, gallops, or rubs. VASCULAR: No Edema. Peripheral pulses normal and equal in all extremities. ABDOMEN: Soft, non tender and non distended. No rebound or guarding, and no masses palpated. Bowel Sounds normal. MUSCULOSKELETAL: Good range of motion of all major joints. Extremities without clubbing, cyanosis. right lower ext edema NEUROLOGIC EXAM: Alert and oriented x 3 No focal sensory or strength deficits. Speech normal. Follows commands. PSYCHIATRIC: Mood normal. SKIN: No rash or lesions. - Constitutional Vitals: Temp Pulse Resp BP Pulse Ox 97.4 F L 99 H 18 143/93 94 12/27/18 11:25 12/27/18 14:42 12/27/18 14:42 12/27/18 11:25 12/27/18 11:25 General appearance: Present: no acute distress Results - Labs CBC & Chem 7: 12/27/18 06:40 12/27/18 06:40 Labs: Laboratory Last Values WBC 8.1 K/mm3 (4.5-11.0) 12/27/18 06:40 RBC 4.32 M/mm3 (3.65-5.03) 12/27/18 06:40 Hgb 10.7 gm/dl (10.1-14.3) 12/27/18 06:40 Hct 33.7 % (30.3-42.9) 12/27/18 06:40 MCV 78 fl (79-97) L 12/27/18 06:40 MCH 25 pg (28-32) L 12/27/18 06:40 MCHC 32 % (30-34) 12/27/18 06:40 RDW 22.9 % (13.2-15.2) H 12/27/18 06:40 Plt Count 246 K/mm3 (140-440) 12/27/18 06:40 Lymph % (Auto) 14.0 % (13.4-35.0) 12/27/18 06:40 Lee % (Auto) 2.4 % (0.0-7.3) 12/27/18 06:40 Eos % (Auto) 0.0 % (0.0-4.3) 12/27/18 06:40 Baso % (Auto) 0.1 % (0.0-1.8) 12/27/18 06:40 Lymph # 1.1 K/mm3 (1.2-5.4) L 12/27/18 06:40 Lee # 0.2 K/mm3 (0.0-0.8) 12/27/18 06:40 Eos # 0.0 K/mm3 (0.0-0.4) 12/27/18 06:40 Baso # 0.0 K/mm3 (0.0-0.1) 12/27/18 06:40 Seg Neutrophils % 83.5 % (40.0-70.0) H 12/27/18 06:40 Seg Neutrophils # 6.8 K/mm3 (1.8-7.7) 12/27/18 06:40 PT 14.4 Sec. (12.2-14.9) 12/26/18 00:37 INR 1.05 (0.87-1.13) 12/26/18 00:37 APTT 30.0 Sec. (24.2-36.6) 12/26/18 00:37 POC ABG pH 7.387 (7.35-7.45) 12/26/18 01:08 POC ABG pCO2 46.9 (35-45) H 12/26/18 01:08 POC ABG pO2 225 (80-105) H 12/26/18 01:08 POC ABG HCO3 28.2 (22-26 mml/L) 12/26/18 01:08 POC ABG Total CO2 30 (23-27mmol/L) 12/26/18 01:08 POC ABG O2 Sat 100 12/26/18 01:08 POC ABG Base Excess 3 ((-2) - (+3)mmol/L) 12/26/18 01:08 50 % 12/26/18 01:08 Sodium 135 mmol/L (137-145) L 12/27/18 06:40 Potassium 4.1 mmol/L (3.6-5.0) 12/27/18 06:40 Chloride 95.3 mmol/L (98-107) L 12/27/18 06:40 Carbon Dioxide 24 mmol/L (22-30) 12/27/18 06:40 20 mmol/L 12/27/18 06:40 BUN 25 mg/dL (7-17) H 12/27/18 06:40 1.4 mg/dL (0.7-1.2) H 12/27/18 06:40 Estimated GFR 48 ml/min 12/27/18 06:40 18 % 12/27/18 06:40 Glucose 327 mg/dL (65-100) H 12/27/18 06:40 POC Glucose 362 (70-105) H 12/27/18 11:34 7.7 % (4-6) H 12/26/18 02:39 Calcium 8.5 mg/dL (8.4-10.2) 12/27/18 06:40 < 0.010 ng/mL (0.00-0.029) 12/26/18 00:37 NT-Pro-B Natriuret Pep 2652 pg/mL (0-900) H 12/27/18 06:09 Active Medications - Current Medications Current Medications: Generic Name Dose Route Start Last Admin Trade Name Freq PRN Reason Stop Dose Admin Acetaminophen 650 mg 12/26/18 02:09 Tylenol PO Q4H PRN Pain MILD(1-3)/Fever >100.5/ROSSI Albuterol 2.5 mg 12/26/18 02:09 Proventil IH Q3HRT PRN Shortness Of Breath Albuterol/Ipratropium 1 ampul 12/26/18 08:00 12/27/18 14:32 Duoneb *Not For Prn Use* IH 1 ampul Q6HRT [facility] Administration Allopurinol 300 mg 12/26/18 10:00 12/27/18 09:13 Zyloprim PO 300 mg QDAY [facility] Administration Amlodipine Besylate 5 mg 12/26/18 10:00 12/27/18 09:23 Norvasc PO 5 mg DAILY [facility] Administration Aspirin 81 mg 12/26/18 10:00 12/27/18 09:13 Baby Aspirin PO 81 mg QDAY [facility] Administration Budesonide 0.5 mg 12/26/18 08:00 12/27/18 07:41 Pulmicort IH 0.5 mg Q12HRT [facility] Administration Bumetanide 1 mg 12/26/18 06:00 12/27/18 05:42 Bumex IV 1 mg BID@0600,1800 [facility] Administration Carvedilol 25 mg 12/26/18 10:00 12/27/18 09:24 Coreg PO 25 mg BID [facility] Administration Dextrose 50 ml 12/26/18 02:52 D50w (25gm) Syringe IV PRN PRN Hypoglycemia Docusate Sodium 100 mg 12/26/18 10:00 12/27/18 09:13 Colace PO 100 mg BID [facility] Administration Guaifenesin 600 mg 12/26/18 10:00 12/27/18 09:13 Mucinex Er PO 600 mg BID [facility] Administration Heparin Sodium (Porcine) 5,000 unit 12/26/18 10:00 12/27/18 09:19 Heparin SUB-Q 5,000 unit Q12HR [facility] Administration Hydralazine HCl 50 mg 12/26/18 06:00 12/27/18 13:01 Apresoline PO 50 mg Q8HR [facility] Administration Levofloxacin/Dextrose 500 mg in 100 mls @ 100 mls/hr 12/26/18 10:00 12/27/18 09:14 Levaquin 500mg/100ml IV 12/30/18 10:59 100 mls/hr Q24HR [facility] Administration Protocol Indomethacin 25 mg 12/26/18 10:00 12/27/18 09:14 Indocin PO 25 mg BID [facility] Administration Insulin Human Isoph/Insulin Regular 20 unit 12/27/18 10:32 Humulin 70/30 SUB-Q BIDDIAB [facility] Insulin Human Lispro 0 unit 12/26/18 07:30 12/27/18 12:58 Humalog SUB-Q 10 unit ACHS [facility] Administration Protocol Losartan Potassium 100 mg 12/26/18 10:00 12/27/18 09:24 Cozaar PO 100 mg QDAY [facility] Administration Methylprednisolone Sodium Succinate 40 mg 12/27/18 10:32 12/27/18 13:01 Solu-Medrol IV 40 mg Q8HR [facility] Administration Nitroglycerin 0.4 mg 12/26/18 03:15 Nitrostat SL .Q5MIN PRN Chest Pain Ondansetron HCl 4 mg 12/26/18 02:09 Zofran IV Q8H PRN Nausea And Vomiting Oxycodone/Acetaminophen 1 tab 12/26/18 02:09 12/27/18 13:02 Percocet 5/325 PO 1 tab Q6H PRN Administration Pain, Moderate (4-6) Potassium Chloride 10 meq 12/26/18 10:00 12/27/18 09:14 K-Dur PO 10 meq QDAY [facility] Administration Sodium Chloride 10 ml 12/26/18 10:00 12/27/18 10:47 Sodium Chloride Flush Syringe 10 Ml IV 10 ml BID [facility] Administration Sodium Chloride 10 ml 12/26/18 02:09 Sodium Chloride Flush Syringe 10 Ml IV PRN PRN LINE FLUSH Nutrition/Malnutrition Assess - Dietary Evaluation Nutrition/Malnutrition Findings: Nutrition Notes Start: 12/26/18 17:27 Freq: Status: Active Protocol: Document 12/26/18 17:27 MELVIN (Rec: 12/26/18 17:35 MELVIN [email or web address]) Nutrition Notes Need for Assessment generated from: MD Order,Education Initial or Follow up Brief Note Current Diet Cardiac/Consistent CHO Labs/Tests BNP 1504 BUN 20 Cr 1.3 A1C 7.7 Subjective/Other Information RD consulted for diet education. Per conversation, pt likely consuming foods with high Na content. She was fretful at time of visit sec to MD telling her that she in renal failure. Pt encouraged to change eating habits and says that she will because she wants to live. #1 Nutrition Diagnosis Altered nutrition-related laboratory values Etiology dietary non-compliance, obesity As Evidenced by Signs and Symptoms elevated BNP, Cr and BUN Nutrition Intervention Teaching Recipient Patient,Family Learning Readiness Good Teaching Methods Discussion Education Handouts Provided Discussed "Heart Failure and Nutrition Therapy" Barriers to Learning No Barriers Patient aware of follow up options Yes Goal #1 Limit Na intake to no more than 2300mg daily Goal #2 Improve BG control Anticipated Discharge Needs: Low Na/CHO-controlled diet Revisit per MD consult or patient Sign Off request:
--- NOTE | 2018-12-27 20:24 | Ultrasound Report ---
PROCEDURE: US RENAL BILAT HISTORY: renaln failure FINDINGS: Real-time ultrasound of the kidneys was performed. The right kidney measures 12.0 x 6.0 x 4.8 cm displays cortical thickness of 1.1 cm. The left kidney measures 11.3 x 6.1 x 5.3 cm and displays cortical thickness of 1.2 cm. Both kidneys appear normal in size and echotexture. No cyst, mass, stone or hydronephrosis is seen. The urinary bladder is smooth in contour. IMPRESSION: The kidneys appear within normal limits This document is electronically signed by Emory Rose MD., December 27 2018 08:22:15 PM ET
[2018-12-28] MEDS: DUONEB *Not for PRN Use IH SCH ×3 (01:35→14:28)
[2018-12-28] MEDS: APRESOLINE PO SCH (06:42)
[2018-12-28] MEDS: SOLU-Medrol IV SCH (06:43)
[2018-12-28] MEDS: HumaLOG SUB-Q SCH ×2 (08:47→13:27)
--- NOTE | 2018-12-28 09:10 | Progress Note ---
Subjective Interval history: Patient was seen today for follow-up of multiple renal related issues she wants to know if she can go home today She is breathing comfortably Willing to change diet and lifestyle and lose weight Interdisciplinary notes that also reviewed Events of 24 hours vitals labs intake output medications were reviewed Past medical history: Reviewed Family history: Reviewed Social history: Reviewed Allergies: Reviewed Physical examination: Vitals: Reviewed HEENT: No pallor or icterus oral mucosa moist Neck: Supple no JVD no thyromegaly Chest: Bilateral clear to auscultation anteriorly Heart: Regular rate and rhythm S1-S2 heard no S3-S4 Abdomen: Soft nontender no voluntary guarding rigidity rebound Extremity: Dry skin less than 1+ peripheral edema Psychiatric: No evidence of agitation and aggression noted Dermatology: No petechial rashes Labs and x-rays: Reviewed from today Assessment and plan Renal failure patient is a 53-year-old but has multiple risk factors for underlying chronic kidney disease, patient is willing to make appointment for follow-up in the office Patient was admitted with uncontrolled hypertension and fluid overload and respiratory failure, she is currently doing much better if diuresis is desired she can be placed on Lasix 3 times a week 40 mg each along with spironolactone 25 mg once a day, she will need to do a basic metabolic profile next week on Tuesday and follow up in the middle of the week I have given her my contact number [phone], patient has entered this number and her phone and is going to call and make an appointment for the next week In the meantime I have encouraged her to avoid indomethacin as much as possible If plan is to discharge her I am happy to see her in the office, next week From renal standpoint. Hemoglobin is 10.7, creatinine is 1.3 which was 1.4 yesterday mild hyponatremia 134 no evidence of metabolic acidosis Patient feels much better she is willing to go home and follow-up in the office Renal ultrasonogram results were limited due to large BMI All questions were answered and simple [place] We'll continue to follow and make recommendation for renal standpoint Objective - Vital Signs Vital signs: Vital Signs - 12hr 12/27/18 12/27/18 12/27/18 22:03 22:04 22:40 Temperature Pulse Rate 77 77 78 Pulse Rate [ Throughout] Respiratory 26 H Rate Respiratory Rate [ Throughout] Blood Pressure 150/92 150/92 O2 Sat by Pulse 100 Oximetry 12/28/18 12/28/18 12/28/18 01:55 02:11 05:02 Temperature 98.7 F Pulse Rate 70 Pulse Rate [ 80 84 Throughout] Respiratory 24 Rate Respiratory 20 20 Rate [ Throughout] Blood Pressure 141/77 O2 Sat by Pulse 97 Oximetry 12/28/18 06:42 Temperature Pulse Rate 70 Pulse Rate [ Throughout] Respiratory Rate Respiratory Rate [ Throughout] Blood Pressure 141/77 O2 Sat by Pulse Oximetry - Lab 12/27/18 06:40 12/28/18 08:47 Most recent lab results Calcium 8.5 mg/dL (8.4-10.2) 12/27/18 06:40 Medications & Allergies - Medications Allergies/Adverse Reactions: Allergies lisinopril Allergy (Verified 12/26/18 00:21) Angioedema Home Medications: Home Medications Medication Instructions Recorded Confirmed Last Taken Type Allopurinol [Zyloprim] 300 mg PO QDAY 12/26/18 12/26/18 12/25/18 History Amlodipine Besylate [Norvasc] 5 mg PO DAILY 12/26/18 12/26/18 12/25/18 History Carvedilol [Coreg] 25 mg PO BID 12/26/18 12/26/18 12/25/18 History Glimepiride [Amaryl] 4 mg PO QAM 12/26/18 12/26/18 12/25/18 History Indomethacin [Indocin] 25 mg PO BID 12/26/18 12/26/18 12/25/18 History Losartan Potassium 100 mg PO DAILY 12/26/18 12/26/18 12/25/18 History Potassium Chloride [Klor-Con 8] 10 meq PO QDAY 12/26/18 12/26/18 12/25/18 Histo ry Ranitidine HCl [Zantac] 150 mg PO BID 12/26/18 12/26/18 12/25/18 History Venlafaxine HCl [Venlafaxine HCl 75 mg PO DAILY 12/26/18 12/26/18 12/25/18 History ER] hydrALAZINE [Apresoline TAB] 50 mg PO Q8HR 12/26/18 12/26/18 12/25/18 History Furosemide [Lasix TAB] 40 mg PO DAILY #30 12/28/18 12/26/18 12/25/18 Rx Ipratropium/Albuterol Sulfate 1 ampul IH Q6HRT #120 ampul.neb 12/28/18 Unknown Rx [DUONEB *Not for PRN Use*] Prednisone [predniSONE 10 mg 10 mg PO .TAPER #1 tab.ds.pk 12/28/18 Unknown Rx (6-Day Pack, 21 Tabs)] Spironolactone [Aldactone] 25 mg PO QDAY #30 tablet 12/28/18 Unknown Rx guaiFENesin ER [Mucinex ER] 600 mg PO BID #14 tablet 12/28/18 Unknown Rx Active Medications: Generic Name Dose Route Start Last Admin Trade Name Freq PRN Reason Stop Dose Admin Acetaminophen 650 mg 12/26/18 02:09 Tylenol PO Q4H PRN Pain MILD(1-3)/Fever >100.5/ROSSI Albuterol 2.5 mg 12/26/18 02:09 Proventil IH Q3HRT PRN Shortness Of Breath Albuterol/Ipratropium 1 ampul 12/26/18 08:00 12/28/18 01:35 Duoneb *Not For Prn Use* IH 1 ampul Q6HRT BAY Administration Allopurinol 300 mg 12/26/18 10:00 12/27/18 09:13 Zyloprim PO 300 mg QDAY BAY Administration Amlodipine Besylate 5 mg 12/26/18 10:00 12/27/18 09:23 Norvasc PO 5 mg DAILY BAY Administration Aspirin 81 mg 12/26/18 10:00 12/27/18 09:13 Baby Aspirin PO 81 mg QDAY BAY Administration Budesonide 0.5 mg 12/26/18 08:00 12/27/18 19:47 Pulmicort IH 0.5 mg Q12HRT BAY Administration Carvedilol 25 mg 12/26/18 10:00 12/27/18 22:04 Coreg PO 25 mg BID BAY Administration Dextrose 50 ml 12/26/18 02:52 D50w (25gm) Syringe IV PRN PRN Hypoglycemia Docusate Sodium 100 mg 12/26/18 10:00 12/27/18 22:05 Colace PO 100 mg BID BAY Administration Furosemide 40 mg 12/28/18 10:00 Lasix PO 0600,1800 BAY Guaifenesin 600 mg 12/26/18 10:00 12/27/18 22:03 Mucinex Er PO 600 mg BID BAY Administration Heparin Sodium (Porcine) 5,000 unit 12/26/18 10:00 12/27/18 22:06 Heparin SUB-Q 5,000 unit Q12HR BAY Administration Hydralazine HCl 50 mg 12/26/18 06:00 12/28/18 06:42 Apresoline PO 50 mg Q8HR BAY Administration Levofloxacin/Dextrose 500 mg in 100 mls @ 100 mls/hr 12/26/18 10:00 12/27/18 09:14 Levaquin 500mg/100ml IV 12/30/18 10:59 100 mls/hr Q24HR BAY Administration Protocol Indomethacin 25 mg 12/26/18 10:00 12/27/18 22:04 Indocin PO 25 mg BID BAY Administration Insulin Human Isoph/Insulin Regular 20 unit 12/27/18 10:32 12/28/18 08:47 Humulin 70/30 SUB-Q 20 unit BIDDIAB BAY Administration Insulin Human Lispro 0 unit 12/26/18 07:30 12/28/18 08:47 Humalog SUB-Q 6 unit ACHS BAY Administration Protocol Losartan Potassium 100 mg 12/26/18 10:00 12/27/18 09:24 Cozaar PO 100 mg QDAY BAY Administration Methylprednisolone Sodium Succinate 40 mg 12/27/18 10:32 12/28/18 06:43 Solu-Medrol IV 40 mg Q8HR BAY Administration Nitroglycerin 0.4 mg 12/26/18 03:15 Nitrostat SL .Q5MIN PRN Chest Pain Ondansetron HCl 4 mg 12/26/18 02:09 Zofran IV Q8H PRN Nausea And Vomiting Oxycodone/Acetaminophen 1 tab 12/26/18 02:09 12/27/18 13:02 Percocet 5/325 PO 1 tab Q6H PRN Administration Pain, Moderate (4-6) Potassium Chloride 10 meq 12/26/18 10:00 12/27/18 09:14 K-Dur PO 10 meq QDAY BAY Administration Sodium Chloride 10 ml 12/26/18 10:00 12/27/18 22:24 Sodium Chloride Flush Syringe 10 Ml IV 10 ml BID BAY Administration Sodium Chloride 10 ml 12/26/18 02:09 12/28/18 06:44 Sodium Chloride Flush Syringe 10 Ml IV 10 ml PRN PRN Administration LINE FLUSH
[2018-12-28] MEDS: PULMICORT IH SCH (09:12)
[2018-12-28 09:16] LABS: Calcium 8.5 mg/dL (8.4-10.2)
[2018-12-28] MEDS: ZYLOPRIM PO SCH (09:36)
[2018-12-28] MEDS: COZAAR PO SCH (09:36)
[2018-12-28] MEDS: LEVAQUIN 500MG/100ML 500 MG/100 ML BAG IV SCH (09:36)
[2018-12-28] MEDS: BABY ASPIRIN PO SCH (09:37)
[2018-12-28] MEDS: COREG PO SCH (09:37)
[2018-12-28] MEDS: COLACE PO SCH (09:37)
[2018-12-28] MEDS: K-DUR PO SCH (09:37)
[2018-12-28] MEDS: NORVASC PO SCH (09:37)
[2018-12-28] MEDS: MUCINEX ER PO SCH (09:37)
[2018-12-28] MEDS: HEPARIN SUB-Q SCH (09:38)
[2018-12-28] MEDS: INDOCIN PO SCH (09:38)
[2018-12-28] MEDS: SODIUM CHLORIDE FLUSH SYRINGE 10 ML IV SCH ×2 (09:38→09:53)
[2018-12-28] MEDS ORDERED: LASIX PO SCH (10:00)
--- NOTE | 2018-12-28 11:52 | Discharge Summary ---
Providers - Providers Date of Admission: 12/26/18 03:34 Attending physician: JONNY MOLINA MD 12/26/18 02:10 Consult to Dietitian/Nutrition [CONS] Routine Physician Instructions: Reason For Exam: Reason for Consult: Diet education 12/26/18 02:42 Consult to Physician [CONS] Routine Comment: Consulting Provider: AICHA DAVENPORT Physician Instructions: Reason For Exam: HERNÁN in setting of CDK 12/27/18 10:36 Consult to Physician [CONS] Routine Comment: Consulting Provider: ADOLPH MCFARLAND Physician Instructions: Reason For Exam: Congestive heart failure Hospitalization Reason for admission: copd exacerbation Condition: Stable Hospital course: 53-year-old -Thai female with history of DM 2, JENNIFER on nocturnal CPAP, hypertension, CHF, COPD, rheumatoid arthritis, gout, throat cancer s/p chemotherapy who presents [facility] ED via EMS with complaints of respiratory distress. On examination patient is seen on BiPAP and complaints of dyspnea with activity. Initial ABG 7.38/46/225/28 done on BiPAP. BNP elevated at 1504. Elevation and BUN/creatinine 18/1.3; unsure of patient's baseline. CXR showed cardiomegaly and bilateral pulmonary edema. Will admit to medical floor for further evaluation and treatment. * Patient was started on diuretics as well as steroids with some noted improvement today * we had exteensive discussion about medication compliance and weight loss. She will follow with cardiology and pulmonary, she will also be more active in a bid to lose some weight. she will follow with Nephrology also Acute respiratory failure Acute exacerbation COPD Acute exacerbation of CHF presumed Diastolic Pulmonary edema DM 2 with hyperglycemia Hypokalemia HERNÁN on CKD baseline unknown Secondary to vasomotor nephropathy Hypertension Rheumatoid arthritis JENNIFER-nocturnal CPAP use Morbid obesity Gout History of Throat cancer status post chemotherapy Disposition: - TO HOME OR SELFCARE Time spent for discharge: 35 mins Core Measure Documentation - Palliative Care Palliative Care/ Comfort Measures: Not Applicable - Core Measures Any of the following diagnoses?: none Exam - Physical Exam Narrative exam: VITAL SIGNS: Reviewed. GENERAL: The patient appeared well nourished and normally developed, Morbidly Obese. Vital signs as documented. HEAD: No signs of head trauma. EYES: Pupils are equal. Extraocular motions intact. EARS: Hearing grossly intact. MOUTH: Oropharynx is normal. NECK: No adenopathy, no JVD. CHEST: Chest Diminished breath sounds bilaterally. No wheezes, rales, or rhonchi. CARDIAC: Regular rate and rhythm. S1 and S2, without murmurs, gallops, or rubs. VASCULAR: No Edema. Peripheral pulses normal and equal in all extremities. ABDOMEN: Soft, non tender and non distended. No rebound or guarding, and no masses palpated. Bowel Sounds normal. MUSCULOSKELETAL: Good range of motion of all major joints. Extremities without clubbing, cyanosis. right lower ext edema NEUROLOGIC EXAM: Alert and oriented x 3 No focal sensory or strength deficits. Speech normal. Follows commands. PSYCHIATRIC: Mood normal. SKIN: No rash or lesions. - Constitutional Vitals: Temp Pulse Resp BP Pulse Ox 98.7 F 72 19 140/77 97 12/28/18 05:02 12/28/18 09:13 12/28/18 09:13 12/28/18 09:37 12/28/18 05:02 Plan Activity: advance as tolerated, fall precautions Diet: low fat, diabetic Special Instructions: record daily weights, record daily BP diary, record blood sugar diary Follow up with: NICOLE PARK [Other] - 3-5 Days PEGGY SOLANO MD [Staff Physician] - 7 Days GALIDNO SUAREZ MD [Staff Physician] - 7 Days Prescriptions: Spironolactone [Aldactone] 25 mg PO QDAY #30 tablet Ipratropium/Albuterol Sulfate [DUONEB *Not for PRN Use*] 1 ampul IH Q6HRT #120 ampul.neb guaiFENesin ER [Mucinex ER] 600 mg PO BID #14 tablet Prednisone [predniSONE 10 mg (6-Day Pack, 21 Tabs)] 10 mg PO .TAPER #1 tab.ds.pk Other Discharge Orders: Glucometer (Amb) Location: None Selected Glucometer supplies[Amb] Location: None Selected Nebulizer (Amb) Location: None Selected
[2018-12-28 12:00] VITALS: BP 136/86
--- NOTE | 2018-12-28 13:58 | Progress Note ---
Assessment and Plan Prelim review of echo shows EF ~45%. Currently stable cardiac status. Pt is requesting to be d/c home today. Pt may discharge home from cardiology standpoint. At discharge, recommend PO lasix 40mg daily. Cont all other present cardiac management. Recommend pt follow up in our office with Dr. Rendon within 3-5 days of hospital discharge ([phone]). Pt verbalizes understanding. The patient has been seen in conjunction with Dr. Rendon who agrees with the assessment and plan of care. - Patient Problems (1) Acute heart failure Current Visit: Yes Status: Acute (2) Acute respiratory failure Current Visit: Yes Status: Acute (3) HERNÁN (acute kidney injury) Current Visit: Yes Status: Acute (4) HTN (hypertension) Current Visit: Yes Status: Chronic (5) Diabetes Current Visit: Yes Status: Chronic (6) Sleep apnea Current Visit: Yes Status: Chronic (7) Morbid obesity Current Visit: Yes Status: Chronic (8) Rheumatoid arthritis Current Visit: Yes Status: Chronic (9) History of non-Hodgkin's lymphoma Current Visit: Yes Status: Chronic Subjective Date of service: 12/28/18 Principal diagnosis: HF Interval history: pt resting in bed, states she is feeling much better. Objective Last Vital Signs Temp 98.8 F 12/28/18 11:29 Pulse 72 12/28/18 11:29 Resp 22 12/28/18 11:29 BP 136/86 12/28/18 11:29 Pulse Ox 97 12/28/18 11:29 - Physical Examination General: No Apparent Distress HEENT: Positive: PERRL, Normocephaly, Mucus Membranes Moist Neck: Positive: neck supple, trachea midline Cardiac: Positive: Reg Rate and Rhythm, S1/S2 Lungs: Positive: Decreased Breath Sounds Neuro: Positive: Grossly Intact Abdomen: Negative: Tender Skin: Negative: Rash Musculoskeletal: No Pain Extremities: Present: edema (trace BLE nonpitting) - Labs and Meds Comprehensive Metabolic Panel 12/28/18 Range/Units 08:47 Sodium 134 L (137-145) mmol/L Potassium 4.1 (3.6-5.0) mmol/L Chloride 95.4 L (98-107) mmol/L Carbon Dioxide 23 (22-30) mmol/L BUN 31 H (7-17) mg/dL Creatinine 1.3 H (0.7-1.2) mg/dL Glucose 255 H (65-100) mg/dL Calcium 8.5 (8.4-10.2) mg/dL - Imaging and Cardiology EKG: report reviewed, image reviewed Echo: pending - EKG Sinus rhythms and dysrhythmias: sinus rhythm
== END 2018-12-28 13:45 | disposition home or self-care (01) | DRG 682 ==
LOC: ED 00:13 → 3A 03:34
PROVIDERS: ADMIT Internal Medicine; ATTEND Internal Medicine
PROC: 4A033R1 Measurement of Arterial Saturation, Peripheral, Percutaneous Approach (ICD-10-PCS; principal; 2018-12-26)
PROC: 5A09357 Assistance with Respiratory Ventilation, Less than 24 Consecutive Hours, Continuous Positive Airway Pressure (ICD-10-PCS; 2018-12-26)
PROC: 5A09357 Assistance with Respiratory Ventilation, Less than 24 Consecutive Hours, Continuous Positive Airway Pressure (ICD-10-PCS; 2018-12-27)
DX: N17.0 Acute kidney failure with tubular necrosis (principal); I50.33 Acute on chronic diastolic (congestive) heart failure; J96.00 Acute respiratory failure, unspecified whether with hypoxia or hypercapnia; I13.0 Hypertensive heart and chronic kidney disease with heart failure and stage 1 through stage 4 chronic kidney disease, or unspecified chronic kidney disease; J44.1 Chronic obstructive pulmonary disease with (acute) exacerbation; M10.9 Gout, unspecified; M06.9 Rheumatoid arthritis, unspecified; E87.6 Hypokalemia; F32.9 Major depressive disorder, single episode, unspecified; G47.33 Obstructive sleep apnea (adult) (pediatric); E66.01 Morbid (severe) obesity due to excess calories; E11.65 Type 2 diabetes mellitus with hyperglycemia; E11.22 Type 2 diabetes mellitus with diabetic chronic kidney disease; N18.9 Chronic kidney disease, unspecified; Z92.21 Personal history of antineoplastic chemotherapy; Z85.818 Personal history of malignant neoplasm of other sites of lip, oral cavity, and pharynx; Z87.891 Personal history of nicotine dependence; Z88.6 Allergy status to analgesic agent; Z79.84 Long term (current) use of oral hypoglycemic drugs; Z68.45 Body mass index [BMI] 70 or greater, adult
CPT/HCPCS: 36415; 71045; 76770; 80048; 82803; 82962; 83036; 83880; 84484; 85025; 85610; 85730; 93005; 93010; 93306; 94640; 96374; 96375; G0378; J1644; J1815; J1940; J1956; J2930